=== PATIENT | male | born 1985 | race Asian ===

== ENCOUNTER 2018-01-10 23:18 | Emergency (ER) | payer BC, OTHER ==
[~2018-01-10] VITALS: Ht 180.3 cm; Wt 97.5 kg
--- NOTE | 2018-01-10 23:42 | NUR ---
PT C/O FEELING OF CHEST PRESSURE, WELL INTERMITTENT NUMBNESS AND FEELING OF "PINS AND NEEDLES" IN HIS LEFT ARM. DENIES DIZZINESS, N/V.
--- NOTE | 2018-01-10 23:45 | NUR ---
DR ZEYNEP AVITIA MD AT BEDSIDE FOR MSE.
[2018-01-11] MEDS ORDERED: MAG HYDROX/AL HYDROX/SIMETH 30 ML LIQUID UDC PO ONE
--- NOTE | 2018-01-11 | NUR ---
LAB AT PT BEDSIDE FOR BLOOD DRAW.
[2018-01-11 00:09] LABS: BASOPHILS # (AUTO) 0.1 K/uL (0.0-8.0); BASOPHILS % (AUTO) 1.2 % (0.0-2.0); EOSINOPHILS # (AUTO) 0.4 K/uL (0.0-0.7); EOSINOPHILS % (AUTO) 6.3 % (0.0-7.0); HEMATOCRIT 45.4 % (36.7-47.1); HEMOGLOBIN 15.6 g/dL (12.5-16.3); LYMPHOCYTES # (AUTO) 2.3 K/uL (20.0-40.0); LYMPHOCYTES % (AUTO) 34.8 % (20.5-51.5); MEAN CORPUSCULAR HEMOGLOBIN 29.4 uug (23.8-33.4); MEAN CORPUSCULAR HGB CONC 34 g/dL (32.5-36.3); MEAN CORPUSCULAR VOLUME 85.6 fL (73.0-96.2); MONOCYTES # (AUTO) 0.7 K/uL (2.0-10.0); MONOCYTES % (AUTO) 10.6 % (0.0-11.0); NEUTROPHILS # (AUTO) 3.1 K/uL (1.8-8.9); NEUTROPHILS % (AUTO) 47.1 % (38.5-71.5); PLATELET COUNT (AUTO) 227 K/uL (152-348); WHITE BLOOD COUNT (AUTO) 6.5 K/uL (3.6-10.2)
[2018-01-11] MEDS ORDERED: MAG HYDROX/AL HYDROX/SIMETH 30 ML LIQUID UDC ONE (00:15)
[2018-01-11] MEDS ORDERED: PANTOPRAZOLE SODIUM 40 MG TABLET.DR PO ONE ×2 (00:16)
--- NOTE | 2018-01-11 00:16 | NUR ---
XRAY AT PT BEDSIDE.
[2018-01-11 00:20] LABS: CARBON DIOXIDE 27 mmol/L (21-32); CHLORIDE 103 mmol/L (98-107); GLUCOSE 114 mg/dL (74-106); POTASSIUM 3.4 mmol/L (3.5-5.1); UREA NITROGEN, BLOOD 21 mg/dL (7-18)
[2018-01-11 00:36] LABS: ALANINE AMINOTRANSFERASE 68 U/L (16-63); ALKALINE PHOSPHATASE 57 U/L (50-136); ASPARTATE AMINOTRANSFERASE 22 U/L (15-37); BILIRUBIN,DIRECT < 0.1 mg/dL (0.0-0.2); BILIRUBIN,TOTAL 0.3 mg/dL (0.2-1.0); TOTAL PROTEIN, SERUM 7.4 g/dL (6.4-8.2)
--- NOTE | 2018-01-11 01:46 | NUR ---
PT RESTING IN BED W/ EYES CLOSED. BREATHING EVEN AND UNLABORED. NO DISTRESS NOTED AT THIS TIME. WILL CONTINUE TO MONITOR.
--- NOTE | 2018-01-11 02:53 | NUR ---
PT CONTINUES TO REST IN BED, WATCHING TV. DENIES PAIN AT THIS TIME.
--- NOTE | 2018-01-11 04:12 | NUR ---
LAB AT BEDSIDE FOR REPEAT TROPONIN
--- NOTE | 2018-01-11 05:10 | NUR ---
Patient discharged to home in stable conditon. Written and verbal after care instructions given. Patient verbalizes understanding of instructions. PT ambulated from ER w/ steady gait. Denies chest pressure/pain or numbness in his arm at this time.no distress noted. Pt provided copy of labs and radiology reports.
[2018-01-11 05:56] VITALS: BP 122/68
== END 2018-01-11 05:10 | disposition home or self-care (01) ==
LOC: ER 23:21
DX: R07.9 Chest pain, unspecified (principal); F17.210 Nicotine dependence, cigarettes, uncomplicated
CPT/HCPCS: 36415; 70030-TC; 71045; 85025; 85730; 93005; A4663

== ENCOUNTER 2018-08-06 08:42 | Outpatient (CLI) | payer BC, OTHER ==
[2018-08-06 09:34] LABS: BASOPHILS # (AUTO) 0.1 K/uL (0.0-8.0); EOSINOPHILS # (AUTO) 0.4 K/uL (0.0-0.7); EOSINOPHILS % (AUTO) 6.6 % (0.0-7.0); HEMATOCRIT 46.4 % (36.7-47.1); LYMPHOCYTES # (AUTO) 1.4 K/uL (20.0-40.0); LYMPHOCYTES % (AUTO) 22.5 % (20.5-51.5); MEAN CORPUSCULAR HEMOGLOBIN 30.2 uug (23.8-33.4); MEAN CORPUSCULAR HGB CONC 35 g/dL (32.5-36.3); MEAN CORPUSCULAR VOLUME 87.6 fL (73.0-96.2); MONOCYTES # (AUTO) 0.7 K/uL (2.0-10.0); MONOCYTES % (AUTO) 10.7 % (0.0-11.0); NEUTROPHILS # (AUTO) 3.7 K/uL (1.8-8.9); NEUTROPHILS % (AUTO) 59.2 % (38.5-71.5); PLATELET COUNT (AUTO) 227 K/uL (152-348); WHITE BLOOD COUNT (AUTO) 6.2 K/uL (3.6-10.2)
[2018-08-06 09:56] LABS: THYROID STIMULATING HORMONE 0.701 mIU/mL (0.358-3.740)
[2018-08-06 10:07] LABS: *BILIRUBIN,URIN NEGATIVE (NEGATIVE); *BLOOD, URINE Trace-intact (NEGATIVE); *CLARITY,URINE CLEAR (CLEAR); *COLOR,URINE YELLOW (YELLOW); *KETONES,URINE NEGATIVE (NEGATIVE); *PROTEIN,URINE NEGATIVE (NEGATIVE); *UROBILINOGEN,URINE 0.2 E.U./dl (NORMAL); LEUKOCYTE ESTERASE ,URINE NEGATIVE (NEGATIVE); NITRITE, URINE NEGATIVE (NEGATIVE); UGLUCOSE NEGATIVE (NEGATIVE)
[2018-08-06 10:15] LABS: BILIRUBIN,TOTAL 0.7 mg/dL (0.2-1.0); CREATININE 1.1 mg/dL (0.6-1.3); POTASSIUM 3.7 mmol/L (3.5-5.1); URIC ACID 8.2 mg/dL (3.5-7.2)
[2018-08-06 10:27] LABS: RBC,URINE NONE SEEN /HPF (0-3)
[2018-08-06 10:28] LABS: BACTERIA,URINE FEW /HPF (NONE SEEN); SQUAMOUS EPITHELIAL CELL,UR FEW /HPF (NONE SEEN); WBC,URINE 0-3 /HPF (0-3)
[2018-08-07 08:07] LABS: *TESTOSTERONE, SERUM 304 ng/dL (264-916)
== END 2018-08-06 23:59 | disposition home or self-care (01) ==
LOC: LAB 08:42
PROVIDERS: ATTEND Legal Medicine
DX: Z00.00 Encounter for general adult medical examination without abnormal findings (principal)
CPT/HCPCS: 36415; 83550; 84402; 84403; 84443; 84550; 85025

== ENCOUNTER 2018-10-20 12:15 | Emergency (ER) | payer BC, OTHER ==
[~2018-10-20] VITALS: Ht 180.3 cm; Wt 97.5 kg
[2018-10-20] MEDS ORDERED: ONDANSETRON ODT 4 MG TAB.RAPDIS SL ONE (13:15)
[2018-10-20] MEDS ORDERED: ONDANSETRON 4 MG/2 ML VIAL ONE ×2 (13:16→13:41)
[2018-10-20] MEDS ORDERED: PANTOPRAZOLE SODIUM 40 MG VIAL ONE (13:41)
[2018-10-20] MEDS ORDERED: PANTOPRAZOLE SODIUM 40 MG VIAL IV ONE (13:45)
[2018-10-20] MEDS ORDERED: ONDANSETRON 4 MG/2 ML VIAL IV ONE (13:45)
[2018-10-20] MEDS ORDERED: IV NORMAL SALINE 1000 ML BAG IV ONE (13:45)
[2018-10-20] MEDS ORDERED: METOCLOPRAMIDE HCL 10 MG/2 ML VIAL ONE (14:09)
[2018-10-20] MEDS ORDERED: diphenhydrAMINE 50 MG/1 ML VIAL ONE (14:09)
[2018-10-20] MEDS ORDERED: diphenhydrAMINE 50 MG/1 ML VIAL IV ONE (14:15)
[2018-10-20] MEDS ORDERED: METOCLOPRAMIDE HCL 10 MG/2 ML VIAL IV ONE (14:15)
[2018-10-20] MEDS ORDERED: MAG HYDROX/AL HYDROX/SIMETH 30 ML LIQUID UDC ONE (14:36)
[2018-10-20] MEDS ORDERED: MAG HYDROX/AL HYDROX/SIMETH 30 ML LIQUID UDC PO ONE (14:45)
[2018-10-20 14:46] LABS: BASOPHILS % (AUTO) 0.4 % (0.0-2.0); EOSINOPHILS % (AUTO) 0.1 % (0.0-7.0); HEMATOCRIT 49.1 % (36.7-47.1); HEMOGLOBIN 16.7 g/dL (12.5-16.3); LYMPHOCYTES # (AUTO) 1.1 K/uL (20.0-40.0); LYMPHOCYTES % (AUTO) 12.4 % (20.5-51.5); MEAN CORPUSCULAR HEMOGLOBIN 29.9 uug (23.8-33.4); MEAN CORPUSCULAR HGB CONC 34 g/dL (32.5-36.3); MEAN CORPUSCULAR VOLUME 87.9 fL (73.0-96.2); MONOCYTES # (AUTO) 0.3 K/uL (2.0-10.0); MONOCYTES % (AUTO) 3.4 % (0.0-11.0); NEUTROPHILS # (AUTO) 7.3 K/uL (1.8-8.9); NEUTROPHILS % (AUTO) 83.7 % (38.5-71.5); PLATELET COUNT (AUTO) 279 K/uL (152-348); RED BLOOD CELL COUNT(AUTO) 5.59 MIL/uL (4.06-5.63); WHITE BLOOD COUNT (AUTO) 8.7 K/uL (3.6-10.2)
[2018-10-20 14:52] LABS: CREATININE 1.1 mg/dL (0.6-1.3); POTASSIUM 3.8 mmol/L (3.5-5.1)
[2018-10-20 14:57] LABS: BILIRUBIN,TOTAL 0.5 mg/dL (0.2-1.0); TOTAL PROTEIN, SERUM 8.9 g/dL (6.4-8.2)
--- NOTE | 2018-10-20 15:10 | NUR ---
PT ABLE TO TOLORATE PO FLUIDS. DENIES N/V.
[2018-10-20 15:13] VITALS: BP 114/70
--- NOTE | 2018-10-20 15:13 | NUR ---
IV removed. Catheter intact and site benign. Pressure and 4x4 gauze applied to site. No bleeding noted.
--- NOTE | 2018-10-20 15:14 | NUR ---
Patient discharged to home in stable conditon. Written and verbal after care instructions given. Patient verbalizes understanding of instructions.
== END 2018-10-20 15:14 | disposition home or self-care (01) ==
LOC: ER 12:15
DX: K29.70 Gastritis, unspecified, without bleeding (principal); E86.0 Dehydration; F17.200 Nicotine dependence, unspecified, uncomplicated
CPT/HCPCS: 36415; 80053; 83690; 85025; 96361; 96374; 96375; 99283; C9113; J1200; J2405; J2765; A4663; J7030

== ENCOUNTER 2019-09-30 21:21 | Emergency (ER) | payer BC, OTHER ==
[~2019-09-30] VITALS: Ht 180.3 cm; Wt 99.8 kg
--- NOTE | 2019-09-30 21:30 | NUR ---
Patient walked into ER c/o sudden on set of SOB about 30mins [employer]. Patient denies CP,dizziness. Able to speak in full sentance.
--- NOTE | 2019-09-30 21:40 | NUR ---
Dr Dhillon into eval patient.
[2019-09-30] MEDS ORDERED: CETI10CA PO (21:45)
[2019-09-30] MEDS ORDERED: FAMO-132 PO (21:45)
[2019-09-30 22:02] LABS: BASOPHILS # (AUTO) 0.1 K/uL (0.0-8.0); EOSINOPHILS # (AUTO) 0.7 K/uL (0.0-0.7); EOSINOPHILS % (AUTO) 8.4 % (0.0-7.0); HEMATOCRIT 48.1 % (36.7-47.1); HEMOGLOBIN 15.9 g/dL (12.5-16.3); LYMPHOCYTES # (AUTO) 2.4 K/uL (20.0-40.0); LYMPHOCYTES % (AUTO) 29.3 % (20.5-51.5); MEAN CORPUSCULAR HEMOGLOBIN 29.1 uug (23.8-33.4); MEAN CORPUSCULAR HGB CONC 33 g/dL (32.5-36.3); MONOCYTES # (AUTO) 0.8 K/uL (2.0-10.0); MONOCYTES % (AUTO) 9.3 % (0.0-11.0); NEUTROPHILS # (AUTO) 4.2 K/uL (1.8-8.9); PLATELET COUNT (AUTO) 235 K/uL (152-348); RED BLOOD CELL COUNT(AUTO) 5.47 MIL/uL (4.06-5.63); WHITE BLOOD COUNT (AUTO) 8.1 K/uL (3.6-10.2)
[2019-09-30 22:21] LABS: CARBON DIOXIDE 24 mmol/L (21-32); CHLORIDE 102 mmol/L (98-107); CREATININE 1.5 mg/dL (0.6-1.3); GLUCOSE 145 mg/dL (74-106); POTASSIUM 3.3 mmol/L (3.5-5.1); UREA NITROGEN, BLOOD 15 mg/dL (7-18)
[2019-09-30 22:25] LABS: ALANINE AMINOTRANSFERASE 42 U/L (16-63); ALKALINE PHOSPHATASE 68 U/L (50-136); ASPARTATE AMINOTRANSFERASE 15 U/L (15-37); BILIRUBIN,DIRECT 0.1 mg/dL (0.0-0.2); BILIRUBIN,TOTAL 0.3 mg/dL (0.2-1.0); TOTAL PROTEIN, SERUM 7.7 g/dL (6.4-8.2)
[2019-09-30 23:24] VITALS: BP 132/77
--- NOTE | 2019-09-30 23:24 | NUR ---
Patient discharged to home in stable conditon with taking patient home. Written and verbal after care instructions given. Patient verbalizes understanding of instructions. Walked out of ER with no distress noted.
== END 2019-09-30 23:25 | disposition home or self-care (01) ==
LOC: ER 21:22
DX: R06.00 Dyspnea, unspecified (principal); F17.200 Nicotine dependence, unspecified, uncomplicated; Z79.899 Other long term (current) drug therapy
CPT/HCPCS: 36415; 70030-TC; 71045; 85025; 93005; A4663

== ENCOUNTER 2020-01-08 13:51 | Outpatient (CLI) | payer BC, OTHER | END 2020-01-08 23:59 | disposition home or self-care (01) | LOC: RAD 13:51 | DX: R06.02 Shortness of breath (principal) | CPT/HCPCS: 71046 ==

== ENCOUNTER 2020-02-07 17:57 | Emergency (ER) | payer BC, OTHER ==
[~2020-02-07] VITALS: Ht 180.3 cm; Wt 99.8 kg
[~2020-02-07 17:57] MED LIST: CETI10CA PO; FAMO-132 PO
[2020-02-07 18:46] LABS: CREATININE 1.5 mg/dL (0.6-1.3); POTASSIUM 3.4 mmol/L (3.5-5.1)
[2020-02-07 18:49] LABS: BASOPHILS # (AUTO) 0.1 K/uL (0.0-8.0); BASOPHILS % (AUTO) 0.9 % (0.0-2.0); EOSINOPHILS # (AUTO) 0.3 K/uL (0.0-0.7); EOSINOPHILS % (AUTO) 4.9 % (0.0-7.0); HEMOGLOBIN 15.5 g/dL (12.5-16.3); LYMPHOCYTES # (AUTO) 2.1 K/uL (20.0-40.0); LYMPHOCYTES % (AUTO) 31.7 % (20.5-51.5); MEAN CORPUSCULAR HEMOGLOBIN 28.8 uug (23.8-33.4); MEAN CORPUSCULAR HGB CONC 33 g/dL (32.5-36.3); MEAN CORPUSCULAR VOLUME 87.6 fL (73.0-96.2); MONOCYTES # (AUTO) 0.6 K/uL (2.0-10.0); MONOCYTES % (AUTO) 9.7 % (0.0-11.0); NEUTROPHILS # (AUTO) 3.4 K/uL (1.8-8.9); NEUTROPHILS % (AUTO) 52.8 % (38.5-71.5); PLATELET COUNT (AUTO) 209 K/uL (152-348); RED BLOOD CELL COUNT(AUTO) 5.37 MIL/uL (4.06-5.63); WHITE BLOOD COUNT (AUTO) 6.5 K/uL (3.6-10.2)
[2020-02-07 19:02] LABS: BILIRUBIN,TOTAL 0.3 mg/dL (0.2-1.0); TOTAL PROTEIN, SERUM 8.2 g/dL (6.4-8.2)
--- NOTE | 2020-02-07 19:03 | NUR ---
PT PRESENTED TO ER C/O SOB, COUGH, CHEST PRESSURE [id number].Patient is AOx4, speaking in complete sentences, speech is clear. Patient is able to follow /comprehend directions. Gait is stable. No cardiovascular distress noted. Rate and rhythm are regular. Patient is on bed. Bed is in lowest position. Siderails are up x 2. Call light within reach. I will continue to monitor accordingly.
--- NOTE | 2020-02-07 19:11 | NUR ---
GAVE REPORT TO CHAR WORRELL.
[2020-02-07] MEDS ORDERED: PIPERACILLIN SODIUM/TAZOBACTAM 3.375 G in IV DEXTROSE 5% 50 ML IV ONE (19:15)
[2020-02-07] MEDS ORDERED: AZITHROMYCIN IV 500 MG in IV DEXTROSE 5% 250 ML IV ONE (19:15)
--- NOTE | 2020-02-07 19:19 | NUR ---
Per Dr. Al to hold off on the antibiotics at this time.
--- NOTE | 2020-02-07 19:45 | NUR ---
Patient marched in place for one minute. SpO2 saturation afterwards was 95% on room air. aware.
--- NOTE | 2020-02-07 21:00 | NUR ---
Patient discharged to home in stable condition. Written and verbal after care instructions given. Patient verbalizes understanding of instructions. Stressed follow up or return to ER for worsening s/s.
== END 2020-02-07 21:02 | disposition home or self-care (01) ==
LOC: ER 17:58
DX: R06.02 Shortness of breath (principal); N18.9 Chronic kidney disease, unspecified; F17.211 Nicotine dependence, cigarettes, in remission; R73.03 Prediabetes; Z20.828 Contact with and (suspected) exposure to other viral communicable diseases; R00.0 Tachycardia, unspecified; K21.9 Gastro-esophageal reflux disease without esophagitis
CPT/HCPCS: 70030-TC; 71045; 83605; 83615; 85025; 85730; 87400; 93005; A4663

== ENCOUNTER → 2021-12-16 | Outpatient (CLI) | payer BC, OTHER ==
[2021-12-16 09:31] LABS: HEMATOCRIT 46.1 % (36.7-47.1); MEAN CORPUSCULAR HEMOGLOBIN 29.3 uug (23.8-33.4); PLATELET COUNT (AUTO) 246 K/uL (152-348)
[2021-12-16 09:48] LABS: BILIRUBIN,TOTAL 0.6 mg/dL (0.2-1.0); POTASSIUM 3.7 mmol/L (3.5-5.1); TOTAL PROTEIN, SERUM 7.8 g/dL (6.4-8.2)
== END | disposition home or self-care (01) ==
LOC: LAB 09:08
PROVIDERS: ATTEND Nurse Practitioner Acute Care
DX: E87.6 Hypokalemia (principal)
CPT/HCPCS: 36415; 85025

== ENCOUNTER 2022-05-05 07:38 | Outpatient (CLI) | payer BC, OTHER | END 2022-05-05 23:59 | disposition home or self-care (01) | LOC: LAB 07:38 | PROVIDERS: ATTEND Internal Medicine Gastroenterology | DX: Z01.812 Encounter for preprocedural laboratory examination (principal); Z20.822 Contact with and (suspected) exposure to COVID-19 ==

== ENCOUNTER 2022-05-08 09:25 | Day surgery (SDC) | payer BC, OTHER ==
[2022-05-08 10:05] LABS: *BILIRUBIN,URIN NEGATIVE (NEGATIVE); *CLARITY,URINE CLEAR (CLEAR); *COLOR,URINE YELLOW (YELLOW); *KETONES,URINE 1+ (NEGATIVE); *UROBILINOGEN,URINE 0.2 E.U./dl (NORMAL); LEUKOCYTE ESTERASE ,URINE NEGATIVE (NEGATIVE); NITRITE, URINE NEGATIVE (NEGATIVE); PH,URINE 5.5 (5.0-8.0); UGLUCOSE NEGATIVE (NEGATIVE)
[2022-05-08 10:06] LABS: HEMATOCRIT 48.2 % (36.7-47.1); MEAN CORPUSCULAR HEMOGLOBIN 29.4 uug (23.8-33.4); MEAN CORPUSCULAR VOLUME 86.5 fL (73.0-96.2); PLATELET COUNT (AUTO) 215 K/uL (152-348)
[2022-05-08 10:16] LABS: POTASSIUM 3.6 mmol/L (3.5-5.1)
[2022-05-08 10:20] LABS: *BLOOD, URINE TRACE (NEGATIVE)
[2022-05-08 10:20] LABS: BILIRUBIN,TOTAL 1.2 mg/dL (0.2-1.0); TOTAL PROTEIN, SERUM 8.2 g/dL (6.4-8.2)
[2022-05-08 10:56] LABS: RBC,URINE NONE SEEN /HPF (0-3)
[2022-05-08 10:57] LABS: BACTERIA,URINE NONE SEEN /HPF (NONE SEEN); SQUAMOUS EPITHELIAL CELL,UR NONE SEEN /HPF (NONE SEEN); WBC,URINE 0-3 /HPF (0-3)
[2022-05-08] MEDS ORDERED: LIDOCAINE-MPF 2% 5 ML VIAL ONE (12:30)
[2022-05-08] MEDS ORDERED: PROPOFOL 200 MG/20 ML BOTTLE ONE ×2 (12:30)
== END 2022-05-08 12:45 | disposition home or self-care (01) ==
LOC: DS 09:25
PROVIDERS: ATTEND Internal Medicine Gastroenterology
DX: K62.5 Hemorrhage of anus and rectum (principal); K64.8 Other hemorrhoids; K63.5 Polyp of colon; D64.9 Anemia, unspecified; K21.00 Gastro-esophageal reflux disease with esophagitis, without bleeding; K29.50 Unspecified chronic gastritis without bleeding; K63.89 Other specified diseases of intestine; K31.89 Other diseases of stomach and duodenum; J45.909 Unspecified asthma, uncomplicated; E11.9 Type 2 diabetes mellitus without complications; Z79.899 Other long term (current) drug therapy; Z98.890 Other specified postprocedural states
CPT/HCPCS: 45380; 43239; 80053; 85025; 85730; 81001; 36415; J3490; J7120; A4663